=== PATIENT | female | born 1985 | race Caucasian/White ===

== ENCOUNTER 2016-05-05 22:33 | Emergency (ER) | payer OTHER ==
[2016-05-06 00:16] LABS: ABSOLUTE NEUTROPHIL COUNT 6.9 K/mm3 (1.8-7.7); BASO # 0.1 K/mm3 (0.0-0.2); BASO % 0.5 % (0.2-1.0); EOS # 0.2 (0.0-0.5); EOS % 1.6 % (0.9-2.9); HEMATOCRIT 35.6 % (37.0-47.0); HEMOGLOBIN 12.3 gm/l (12.0-16.0); IMM NEUT% 0.2 % (0-1); LYMPH # 3.1 (1.0-4.8); LYMPH % 28.2 % (15-45); MEAN CELL VOLUME 89.7 fl (81.0-99.0); MEAN CORPUSCULAR HGB CONC 34.6 g/dl (33.0-37.0); MEAN PLATELET VOLUME 9.7 fl (7.4-10.4); MONO # 0.8 (0.0-0.8); MONO % 7.1 % (4-12); NEUT % 62.4 % (43-75); PLATELET COUNT 280 K/mm3 (130-400); RED CELL DISTRIBUTION WIDTH 12.2 % (11.5-14.5)
[2016-05-06 00:31] LABS: CALCIUM 9.3 mg/dL (8.6-10.3)
[2016-05-06 01:20] LABS: SPECIFIC GRAVITY 1.025 (1.001-1.030); URINE BILIRUBIN NEGATIVE (NEGATIVE); URINE BLOOD TRACE (NEGATIVE); URINE GLUCOSE (UA) NEGATIVE (NEGATIVE); URINE LEUKOCYTE ESTERASE TRACE (NEGATIVE); URINE NITRITE NEGATIVE (NEGATIVE); URINE PROTEIN NEGATIVE (NEGATIVE); URINE UROBILINOGEN NORMAL (0-1 mg/dl)
[2016-05-06 01:24] LABS: URINE APPEARANCE HAZY; URINE COLOR LIGHT YELLOW
[2016-05-06 01:33] LABS: URINE BACTERIA 1+
--- NOTE | 2016-05-06 08:54 | US ---
OB COMP <14 WKS CLINICAL HISTORY: 31 years old. LMP 02/18/2016. Gestational age approximately 11 weeks. Vaginal spotting. COMPARISON: None TECHNIQUE: Transabdominal FINDINGS: Uterus: Single intrauterine gestation. Gestational sac size and shape: Normal size and shape. [place] rump length: 4.2 cm = 11 weeks 1 days. Estimated date of confinement: 11/24/2016 Embryo: Yes Yolks sac: Yes heart tones: Yes 160 Beats per minute Placenta: Too early to comment. Previa: Too early comment. Lashawn-gestational bleed: None. Right ovary: 2.9 x 1.3 x 3.0 cm. Left ovary: 2.4 x 1.5 x 2.4 cm Impression: 1. Live intrauterine gestation. Ultrasound gestational age 11 weeks 1 day and OLIVER 11/24/2016. No perigestational bleed. Preliminary report by [facility] radiologist Roxane Arteaga M.D. 05/06/2016 at 01:28
== END 2016-05-06 02:01 | disposition home or self-care (01) ==
LOC: ED 22:33
DX: O46.91 Antepartum hemorrhage, unspecified, first trimester (principal); O23.41 Unspecified infection of urinary tract in pregnancy, first trimester; Z3A.11 11 weeks gestation of pregnancy